=== PATIENT | female | born 1980 | race African-American/Black ===

== ENCOUNTER 2022-05-29 09:28 | Emergency (ER) | payer OTHER, SELFPAY ==
[2022-05-29 12:02] LABS: Urine Blood Negative (Negative); Urine Glucose Negative (Negative); Urine Protein Negative (Negative)
[2022-05-29 12:29] LABS: Absolute Lymphocytes (CBC) 2.2 K/uL (0.7-4.9); Hematocrit 29.1 % (36.0-45.0); Lymphocytes % 17.3 % (15.3-44.8); MCV 62.1 fL (80-100); RBC Red Blood Cell Count 4.68 M/uL (3.86-4.86)
[2022-05-29] MEDS ORDERED: ONDANSETRON 4 MG/2 ML VIAL ONE (12:43)
[2022-05-29] MEDS ORDERED: KETOROLAC 30 MG/ML INJ ONE (12:43)
[2022-05-29] MEDS ORDERED: NA CHLORIDE 0.9% 1,000 ML ONE (12:43)
[2022-05-29 12:47] LABS: Albumin 3.9 g/dL (3.4-5.0); Bilirubin Total 0.4 mg/dL (0.2-1.0); Potassium 3.2 mmol/L (3.5-5.1); Protein, Total 8.8 g/dL (6.4-8.2)
[2022-05-29 13:17] LABS: White Blood Cell Scan OK (OK)
[2022-05-29 13:18] LABS: Anisocytosis 2+; Blood Morphology Comment NOTED (NOT SEEN); Hypochromasia 1+; Platelet Estimate ADEQ
--- NOTE | 2022-05-29 13:35 | RAD REPORT ---
EXAM DESCRIPTION: CTAbdomen Pelvis W Contrast - 05/29/2022 1:05 pm CLINICAL HISTORY: abdominal pain COMPARISON: No comparisons TECHNIQUE: CT of the abdomen and pelvis was performed with contrast. All CT scans are performed using dose optimization technique as appropriate and may include automated exposure control or mA/KV adjustment according to patient size. FINDINGS: Lower chest: No acute abnormality. Small hiatal hernia. Liver: No acute abnormality or suspicious lesions. Biliary: No biliary ductal dilatation. Stomach: No significant focal abnormality. Duodenum: No significant focal abnormality. Pancreas: No significant abnormality. Spleen: No significant abnormality. Adrenal: No suspicious lesions. Kidney/ureter: No hydronephrosis. No renal calculi. Left lower pole renal cyst. Retroperitoneum: No retroperitoneal adenopathy. Vascular: No aneurysm. Bowel: No significant focal abnormality. Normal appendix. Peritoneum: Pelvic free fluid which is more than expected but nonspecific. Bladder: Grossly unremarkable. Reproductive: Corpus luteal cyst in the left adnexa. Question enhancing tubular structure at the left ovary. Bones: No acute fracture. Other: n/a IMPRESSION: Question left-sided hydrosalpinx which could reflect pelvic inflammatory disease. A niall us luteal cyst is noted in the left adnexa as well. Either finding could explain the patient's left l ower quadrant pain. Consider pelvic ultrasound for further evaluation.
--- NOTE | 2022-05-29 15:47 | RAD REPORT ---
EXAM DESCRIPTION: US - Transvaginal Study Probe - 05/29/2022 2:59 pm CLINICAL HISTORY: left sided pelvic pain Pelvic pain. COMPARISON: Abdomen Pelvis W Contrast dated 05/29/2022 FINDINGS: In the lower uterine segment, there are several anechoic lesions measuring up to 1.2 cm th at are consent the with simple cysts and of low clinical significance. Nabothian cysts noted. The [place] petey measures 10.3 cm. Prominent parauterine and paraovarian veins. The uterus is anteverted. The endometrial stripe measures 5 mm, within normal limits The right ovary was not visualized. The left ovary measures 4.6 x 2.6 x 4.1 cm with volume of 25.1 cc . Vascular flow is present. Pelvic free fluid is present. IMPRESSION: 1. Vascular flow is present within the left ovary. Prominent para-uterine veins are nons pecific but can be seen with pelvic congestion syndrome. No evidence of hydrosalpinx. 2. Nonvisualized right ovary. 3. Several Nabothian and/or benign lower uterine cystic structures of no clinical significance. 4. Pelvic free fluid which is likely physiologic.
[2022-05-29] MEDS ORDERED: MORPHINE 4 MG/ML SYR ONE (16:38)
--- NOTE | 2022-05-29 17:05 | EDPHYS ---
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 - Social history:: Smoking status: Patient denies any tobacco usage or history of. Vital Signs: 11:08 BP 145 / 93; Pulse 89; Resp 17; Temp 97.9; Pulse Ox 100% ; Weight 74.84 kg; Height 5 7 ft. 3 in. (160.02 cm); Pain 10/10; 13:36 BP 116 / 82; Pulse 78; Resp 17; Pulse Ox 100% on R/A; richey 15:35 BP 128 / 81; Pulse 76; Resp 17; Pulse Ox 100% on R/A; richey 11:08 Body Mass Index 29.23 (74.84 kg, 160.02 cm) 7 MDM: 11:11 Patient medically screened. [facility] 17:03 Data reviewed: vital signs, nurses notes. Counseling: I had a detailed discussion with medhat the patient and/or guardian regarding: the historical points, exam findings, and any diagnostic results supporting the discharge/admit diagnosis, lab results, radiology results, the need for outpatient follow up, to return to the emergency department if symptoms worsen or persist or if there are any questions or concerns that arise at home. 05/29 11:01 Order name: CBC with Diff; Complete Time: 13:28 [facility] 05/29 11:01 Order name: CMP; Complete Time: 12:53 [facility] 05/29 11:01 Order name: Lipase; Complete Time: 12:53 [facility] 05/29 12:02 Order name: Urine --Ancillary (enter results); Complete Time: 12:22 em1 05/29 12:02 Order name: Urine Dipstick-Ancillary; Complete Time: 12:22 [facility] 05/29 12:36 Order name: CBC Smear Scan; Complete Time: 13:28 [facility] 05/29 12:22 Order name: CT Abd/Pelvis - IV Contrast Only; Complete Time: 13:41 [facility] 05/29 14:06 Order name: Transvaginal Study Probe; Complete Time: 16:01 [facility] 05/29 11:01 Order name: IV Saline Lock; Complete Time: 12:23 [facility] 05/29 11:01 Order name: Labs collected and sent; Complete Time: 12:23 [facility] 05/29 11:01 Order name: Urine Dipstick-Ancillary (obtain specimen); Complete Time: 12:24 [facility] 05/29 11:01 Order name: Urine Test (obtain specimen); Complete Time: 12:24 [facility] 05/29 13:54 Order name: Pelvic Exam Setup; Complete Time: 17:01 [facility] Administered Medications: 12:40 Drug: NS 0.9% 1000 ml Route: IV; Rate: 1 bolus; Site: right antecubital; richey 12:40 Drug: Zofran (Ondansetron) 4 mg Route: IVP; Site: right antecubital; richey 12:41 Follow up: Response: No adverse reaction richey 12:40 Drug: Ketorolac 30 mg Route: IVP; Site: right antecubital; richey 12:40 Follow up: Response: No adverse reaction richey 16:37 Drug: morphine 4 mg Route: IVP; Infused Over: 4 mins; Site: right antecubital; richey 16:38 Follow up: Response: No adverse reaction richey Disposition: 22:38 Co-signature as Attending Physician, Jose Armando LINDSEY was immediately available on-site ms3 in the Emergency Department for consultation in the care of the patient.. Disposition Summary: 05/29/22 17:04 Discharge Ordered Location: Home [facility] Condition: Stable [facility] Diagnosis - Pelvic and perineal pain [facility] Followup: [facility] - With: Fabiana Morna MD - When: 2 - 3 days - Reason: Recheck today's complaints, Continuance of care, Re-evaluation by your physician Discharge Instructions: - Discharge Summary Sheet [facility] - Pelvic Pain, Female [facility] Forms: - Medication Reconciliation Form [facility] - Thank You Letter jmm - Antibiotic Education jmm - Prescription Opioid Use jm Prescriptions: - Ultracet 37.5-325 mg Oral Tablet - take 1 tablet by ORAL route every 6 hours - for up to 5 days; do not exceed 8 jmm tablets per day.; 12 tablet; Refills: 0, Product Selection Permitted - Diclofenac Sodium 75 mg Oral Tablet Sustained Release - take 1 tablet by ORAL route 2 times per day; 30 tablet; Refills: 0, Product jmm Selection Permitted Signatures: Dispatcher [employer] EDMS Jay Elizabeth PA PA jmm Leal, Jahala, RN RN jl7 Jose Armando Tello DO DO ms3 Madison Ramos RN RN richey Corrections: (The following items were deleted from the chart) 14:06 13:54 Pelvis Complete+US.RAD.BRZ ordered. [facility]
--- NOTE | 2022-05-29 17:05 | ER ---
Nurse's Notes [facility] Name: Tia Tsang Age: 41 yrs Sex: Female : 1980 Arrival Date: 05/29/2022 Time: 10:01 Bed 2 Private MD: Diagnosis: Pelvic and perineal pain Presentation: 05/29 11:08 Chief complaint: Patient states: LLQ abd pain x 1 day. Coronavirus screen: At this [facility] time, the client does not indicate any symptoms associated with coronavirus-19. Ebola Screen: No symptoms or risks identified at this time. Initial Sepsis Screen: Does the patient meet any 2 criteria? No. Patient's initial sepsis screen is negative. Does the patient have a suspected source of infection? No. Patient's initial sepsis screen is negative. Risk Assessment: Do you want to hurt yourself or someone else? Patient reports no desire to harm self or others. Onset of symptoms was May 29, 2022. 11:08 Method Of Arrival: Ambulatory [facility] 11:08 Acuity: WOLF 3 jl7 Triage Assessment: 12:32 General: Appears in no apparent distress. Behavior is calm, cooperative. 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 - Social history:: Smoking status: Patient denies any tobacco usage or history of. Screenin:31 Abuse screen: Denies threats or abuse. Denies injuries from another. Nutritional richey screening: No deficits noted. Tuberculosis screening: No symptoms or risk factors identified. Fall Risk None identified. Assessment: 12:31 Pain: Complains of pain in abdomen. GI: Bowel sounds present X 4 quads. Abdomen is richey tender to palpation in left lower quadrant. 05/30 16:24 Reassessment: Lab personnel reported the GC swab that was sent to lab was sent in a 7 viral transport medium and will not be able to run the test. Pt notified of inability to run the lab and to follow-up with GENERAL REPAIR MECHANIC, pt verbalized understanding. Vital Signs: 05/29 11:08 BP 145 / 93; Pulse 89; Resp 17; Temp 97.9; Pulse Ox 100% ; Weight 74.84 kg; Height 5 jl7 ft. 3 in. (160.02 cm); Pain 10/10; 13:36 BP 116 / 82; Pulse 78; Resp 17; Pulse Ox 100% on R/A; richey 15:35 BP 128 / 81; Pulse 76; Resp 17; Pulse Ox 100% on R/A; richey 11:08 Body Mass Index 29.23 (74.84 kg, 160.02 cm) jl7 ED Course: 10:01 Patient arrived in ED. mr 10:08 Jay Elizabeth PA is PHCP. jmm 10:08 Jose Armando Tello DO is Attending Physician. jmm 11:11 Triage completed. jl7 11:24 Arm band placed on right wrist. Patient placed in waiting room, Patient notified of jl7 wait time. 12:23 Inserted saline lock: 22 gauge in right antecubital area, using aseptic technique. zm Blood collected. 12:24 CBC with Diff Sent. zm 12:24 CMP Sent. zm 12:24 Lipase Sent. zm 12:27 Madison Ramos, RN is Primary Nurse. richey 12:31 Patient has correct armband on for positive identification. Bed in low position. richey 12:31 No provider procedures requiring assistance completed. richey 13:07 CT Abd/Pelvis - IV Contrast Only In Process Unspecified. EDMS 15:01 Transvaginal Study Probe In Process Unspecified. EDMS 17:01 GC (GONORR/CHLAMYDIA) Probe Sent. richey 17:03 Fabiana Moran MD is Referral Physician. jmm 17:10 IV discontinued, intact, Pressure dressing applied. richey Administered Medications: 12:40 Drug: NS 0.9% 1000 ml Route: IV; Rate: 1 bolus; Site: right antecubital; richey 12:40 Drug: Zofran (Ondansetron) 4 mg Route: IVP; Site: right antecubital; richey 12:41 Follow up: Response: No adverse reaction richey 12:40 Drug: Ketorolac 30 mg Route: IVP; Site: right antecubital; richey 12:40 Follow up: Response: No adverse reaction richey 16:37 Drug: morphine 4 mg Route: IVP; Infused Over: 4 mins; Site: right antecubital; richey 16:38 Follow up: Response: No adverse reaction richey Medication: 12:31 VIS not applicable for this client. richey Outcome: 17:04 Discharge ordered by MD. aguilar 17:10 Discharged to home ambulatory. richey 17:10 Condition: good 17:10 Discharge instructions given to patient, Prescriptions given X 2. 17:15 Patient left the ED. jl7 Signatures: Dispatcher [employer] EDMS Jay Elizabeth PA PA jmm Rivera, Mary mr Leal, Jahala, RN RN jl7 Juliette-StageMadison walker RN RN ha Martinez, Zaina zm
[2022-05-29 17:45] VITALS: TEMP 97.9; O2SAT 100
[2022-05-29 17:49] VITALS: BP 128/81
== END 2022-05-29 17:15 | disposition home or self-care (01) ==
LOC: ER 09:28
DX: R10.2 Pelvic and perineal pain (principal)
CPT/HCPCS: 36415; 74177; 76830; 80053; 81003; 81025; 83690; 85025; 87490; 87590; 96374; 96375; 99284; J2405; J7030; Q9967